=== PATIENT | male | born 1975 | race Caucasian/White ===

== ENCOUNTER 2017-07-01 21:23 | Emergency (ER) | payer OTHER ==
[2017-07-01 21:43] VITALS: BP 147/81; PULSE 82; RESP 20; TEMP 97.4; O2SAT 97
== END 2017-07-01 22:20 | disposition home or self-care (01) ==
LOC: ED 21:23
DX: R07.89 Other chest pain (principal)
CPT/HCPCS: 99282

== ENCOUNTER 2017-07-08 20:56 | Emergency (ER) | payer OTHER ==
[2017-07-08 21:41] VITALS: TEMP 98.4
[2017-07-08] MEDS ORDERED: KETOROLAC TROMETHAMINE 30 MG/ML SOL IM ONE (22:57)
[2017-07-08] MEDS ORDERED: KETOROLAC TROMETHAMINE 30 MG/ML SOL ONE (22:58)
[2017-07-08 23:26] VITALS: BP 156/96; PULSE 78; RESP 16; O2SAT 96
== END 2017-07-08 23:23 | disposition home or self-care (01) ==
LOC: ED 20:56
DX: M94.0 Chondrocostal junction syndrome [Tietze] (principal)
CPT/HCPCS: 71020; 93005; 96372; 99284; J1885

== ENCOUNTER 2018-06-01 10:36 | Emergency (ER) | payer OTHER ==
[2018-06-01 10:52] VITALS: RESP 18; TEMP 96.9; O2SAT 98
[2018-06-01] MEDS ORDERED: KETOROLAC TROMETHAMINE 30 MG/ML SOL IM ONE (11:17)
[2018-06-01] MEDS ORDERED: CYCLOBENZAPRINE 10 MG TAB PO ONE (11:17)
[2018-06-01] MEDS ORDERED: APAP/HYDROCODONE 1 EACH TABLET ONE (11:19)
[2018-06-01] MEDS ORDERED: CYCLOBENZAPRINE 10 MG TAB ONE (11:20)
[2018-06-01] MEDS ORDERED: KETOROLAC TROMETHAMINE 30 MG/ML SOL ONE (11:20)
[2018-06-01] MEDS ORDERED: APAP/HYDROCODONE 1 EACH TABLET PO ONE (11:30)
[2018-06-01] MEDS ORDERED: APAP/HYDROCODONE 325/7.5 TAB PO SCH (11:30)
[2018-06-01 13:44] VITALS: BP 109/78; PULSE 80
== END 2018-06-01 13:30 | disposition home or self-care (01) | DRG 605 ==
LOC: ED 10:36
DX: S30.0XXA Contusion of lower back and pelvis, initial encounter (principal); S20.229A Contusion of unspecified back wall of thorax, initial encounter
CPT/HCPCS: 72070; 72120; 82962; 96372; 99283; J1885; A9270-GY

== ENCOUNTER 2019-02-09 21:54 | Emergency (ER) | payer OTHER ==
[2019-02-09 22:10] VITALS: TEMP 98.2
[2019-02-09] MEDS ORDERED: KETOROLAC TROMETHAMINE 30 MG/ML SOL IM ONE (22:24)
[2019-02-09] MEDS ORDERED: KETOROLAC TROMETHAMINE 30 MG/ML SOL ONE (22:25)
[2019-02-09] MEDS ORDERED: CYCLOBENZAPRINE 10 MG TAB PO ONE (23:02)
[2019-02-09] MEDS ORDERED: APAP/HYDROCODONE 1 EACH TABLET PO ONE ×2 (23:02→23:53)
[2019-02-09] MEDS ORDERED: APAP/HYDROCODONE 1 EACH TABLET ONE ×2 (23:03→23:53)
[2019-02-09] MEDS ORDERED: CYCLOBENZAPRINE 10 MG TAB ONE (23:03)
[2019-02-09 23:36] VITALS: RESP 18
[2019-02-10 00:10] VITALS: BP 152/98; PULSE 72; O2SAT 100
== END 2019-02-09 23:54 | disposition home or self-care (01) | DRG 556 ==
LOC: ED 21:54
DX: M25.512 Pain in left shoulder (principal); M94.0 Chondrocostal junction syndrome [Tietze]; S40.012A Contusion of left shoulder, initial encounter; W18.30XA Fall on same level, unspecified, initial encounter
CPT/HCPCS: 71045; 73030; 96372; 99283; 99284; J1885; A9270-GY